=== PATIENT | female | born 1955 | race Caucasian/White ===

== ENCOUNTER 2016-12-19 16:29 | Observation (INO) | payer MEDICARE, MEDICAID ==
[~2016-12-19 16:29] MED LIST: ACID CONTROL150 M2 PO; ADULT LOW DOSE81 M1 PO; ALBUTEROL SULF8.5 GM IH; ALBUTEROL0.83 MG/ML INH; ALENDRONATE SOD70 M2 PO; ALPRAZOLAM0.5 M2 PO; ALPRAZOLAM0.5 M3 PO; AMLODIPINE BESY10 MG PO; AMLODIPINE BESYL5 MG PO; ASPIRIN EC81 MG PO; ASPIRIN325 MG PO; BRILINTA90 M1 PO; BUTALB-ACETAMI1 EAC4 PO; CATAPRES0.1 MG PO; CATAPRES0.2 M1 PO; CEFDINIR300 M1 PO; CIPRO500 M2 PO; CLOPIDOGREL75 M1 PO; COZAAR25 M1 PO; CRESTOR20 MG PO; CRESTOR20 MG/TAB PO; CYMBALTA30 MG PO; CYMBALTA60 M1 PO; ERYTHROMYCIN3.5 GM OP; EYE OP; FIORINAL 50-321 EACH PO; FLUTICASONE P15.8 ML INH; FUROSEMIDE40 M1 PO; FUROSEMIDE40 MG PO; GENTAK5 M1 OP; HYDROCHLOROTHIA25 M1 PO; HYDROCODON-ACE1 EA16 PO; HYZAAR 100-12.1 EACH PO; IBUPROFEN800 MG PO; IMDUR PO; IPRAT-ALBUT 0.5-3 ML NEB; ISOSORBIDE MON120 M1 PO; ISOSORBIDE MONO30 M4 PO; ISOSORBIDE MONO60 M3 PO; K-DUR10 MEQ PO; LAMOTRIGINE100 M2 PO; LAMOTRIGINE100 MG PO; LAMOTRIGINE25 M3 PO; LEVAQUIN750 M1 PO; LOPRESSOR25 MG/TA7 PO; LOPRESSOR50 M1 PO; LORCET 5-325 M1 EAC1 PO; LOSARTAN POTASS25 M1 PO; LOSARTAN-HCTZ1 EAC6 PO; METOPROLOL TART50 M2 PO; MIRTAZAPINE7.5 M1 PO; MUCINEX600 M1 PO; NITROGLYCERIN0.4 M2 SL; NITROSTAT0.4 MG/TAB SL; NORCO 5-325 TA1 EACH PO; NORVASC10 M2 PO; NYSTATIN SSP; PRAMIPEXOLE DI0.5 M1 PO; PREDNISONE10 M1 PO; PREDNISONE10 M2 PO; PREDNISONE5 M1 PO; PROAIR HFA8.5 GM INH; RANITIDINE HCL150 MG PO; REQUIP0.5 M1 PO; RIVASTIGMINE1.5 M1 PO; RIVASTIGMINE1.5 MG PO; SPIRIVA18 MC1 IH; SPIRIVA18 MC1 INH; SPIRIVA18 MCG IH; SPIRIVA18 MCG PO; SYMBICORT 80-41 PUFF INH; SYMBICORT 80/10.2 GM INH; VITAMIN D1000 UNI2 PO; VITAMIN D1000 UNIT PO; VITAMIN D31000 UNI4 PO; ZESTRIL40 M1 PO; ZOFRAN ODT4 MG PO
[2016-12-19 19:08] LABS: ANION GAP 11 mmol/L (0-20); BLOOD UREA NITROGEN 17 mg/dl (6-24); CALCIUM 8.7 mg/dl (8.5-10.5); CARBON DIOXIDE-VENOUS 29 mmol/L (22-32); CHLORIDE 104 mmol/l (96-110); GLUCOSE 109 mg/dL (70-110); POTASSIUM 3.7 mmol/L (3.7-5.1); SODIUM 140 mmol/L (135-145); eGFR VALUE FOR BLACK >90 mL/Min
[2016-12-19 19:26] LABS: BASO % 0.2 % (0-2); EOS % 0.7 % (0-7); EOSINOPHIL ABSOLUTE COUNT 0.1 tho/cmm (0.0-0.7); HCT-HEMATOCRIT 44.1 % (34.0-49.0); HGB-HEMOGLOBIN 14.7 gm/dl (12.0-15.5); IMMATURE GRANULOCYTES ABSOLUTE 0.02 tho/cmm (0-0.03); IMMATURE GRANULOCYTES PERCENT 0.2 % (0-0.3); LYMPH % 17.5 % (20-45); LYMPH ABSOLUTE COUNT 2.3 tho/cmm (0.8-4.5); MCH (MEAN CORPUSCULAR HGB) 28.1 pg (28.0-32.0); MCHC MEAN CORPUSCULAR HGB CONC 33.3 % (32.0-36.0); MCV (MEAN CELL VOLUME) 84.2 fl (82.0-96.0); MEAN PLATELET VOLUME 10.3 cmc (9.4-12.4); MONO % 9.1 % (0-12); MONOCYTE ABSOLUTE COUNT 1.2 tho/cmm (0.0-1.2); NEUTROPHIL ABSOLUTE COUNT 9.3 tho/cmm (1.6-8.0); NEUTROPHIL-AUTOMATED 9.3 tho/cmm (1.6-8.0); NEUTROPHILS % 72.3 % (40-80); PLATELET COUNT 208 tho/cmm (150-450); RED BLOOD COUNT 5.24 mil/cmm (4.00-5.20); RED CELL DISTRIBUTION WIDTH 14.6 % (12.4-16.4); WHITE BLOOD COUNT 12.9 tho/cmm (4.0-10.0)
[2016-12-19 22:43] LABS: CHOLESTEROL 133 mg/dl (120-200); HDL CHOLESTEROL 70 mg/dl (40-60); LDL CHOLESTEROL 45 mg/dl (0-99); TRIGLYCERIDES 94 mg/dl (<149); VLDL 19 mg/dl (0-30)
[2016-12-20 06:29] LABS: ANION GAP 10 mmol/L (0-20); BLOOD UREA NITROGEN 12 mg/dl (6-24); CALCIUM 8.4 mg/dl (8.5-10.5); CARBON DIOXIDE-VENOUS 29 mmol/L (22-32); CHLORIDE 105 mmol/l (96-110); CREATININE 0.49 mg/dl (0.50-1.10); GLUCOSE 110 mg/dL (70-110); POTASSIUM 3.4 mmol/L (3.7-5.1); SODIUM 141 mmol/L (135-145); eGFR VALUE FOR BLACK >90 mL/Min
[2016-12-21 06:11] LABS: BLOOD UREA NITROGEN 17 mg/dl (6-24); eGFR VALUE FOR BLACK 89 mL/Min
[2016-12-21 06:14] LABS: CREATININE 0.82 mg/dl (0.50-1.10)
[2016-12-21] MEDS ORDERED: RANEXA1000 M1 PO (10:40)
[2016-12-21] MEDS ORDERED: ASPIRIN81 M1 PO (10:43)
[2016-12-21] MEDS ORDERED: PREVACID15 M2 PO (10:45)
[2017-04-14] MEDS ORDERED: PRAMIPEXOLE0.125 M1 PO (11:35)
[2017-04-14] MEDS ORDERED: ACID REDUCER150 M1 PO (11:36)
[2017-04-16] MEDS ORDERED: MEDROL DOSE PACK (09:58)
[2017-04-16] MEDS ORDERED: ZITHROMAX250 M1 PO (10:00)
== END 2016-12-21 13:29 ==
LOC: EDMED 16:29 → EMR2 21:39 → CAR1 23:48
PROVIDERS: Physician Assistant; Physician Assistant Medical; ADMIT Internal Medicine Clinical Cardiac Electrophysiology
PROC: 4A023N7 Measurement of Cardiac Sampling and Pressure, Left Heart, Percutaneous Approach (ICD-10-PCS; principal; 2016-12-19)
PROC: B2131ZZ Fluoroscopy of Multiple Coronary Artery Bypass Grafts using Low Osmolar Contrast (ICD-10-PCS; 2016-12-19)
PROC: B2151ZZ Fluoroscopy of Left Heart using Low Osmolar Contrast (ICD-10-PCS; 2016-12-19)
DX: I25.110 Atherosclerotic heart disease of native coronary artery with unstable angina pectoris (principal); J44.9 Chronic obstructive pulmonary disease, unspecified; G47.33 Obstructive sleep apnea (adult) (pediatric); F17.210 Nicotine dependence, cigarettes, uncomplicated; I10 Essential (primary) hypertension; D72.829 Elevated white blood cell count, unspecified; E78.5 Hyperlipidemia, unspecified; I34.0 Nonrheumatic mitral (valve) insufficiency; I07.1 Rheumatic tricuspid insufficiency; I27.2 Other secondary pulmonary hypertension; Z79.02 Long term (current) use of antithrombotics/antiplatelets; Z79.82 Long term (current) use of aspirin; Z79.83 Long term (current) use of bisphosphonates; Z79.899 Other long term (current) drug therapy; Z88.2 Allergy status to sulfonamides; Z88.8 Allergy status to other drugs, medicaments and biological substances; Z91.048 Other nonmedicinal substance allergy status; Z86.718 Personal history of other venous thrombosis and embolism; Z82.49 Family history of ischemic heart disease and other diseases of the circulatory system; Z95.1 Presence of aortocoronary bypass graft; Z95.5 Presence of coronary angioplasty implant and graft; Z90.49 Acquired absence of other specified parts of digestive tract; Z90.11 Acquired absence of right breast and nipple; Z98.1 Arthrodesis status; Z96.652 Presence of left artificial knee joint; Z98.890 Other specified postprocedural states; Z99.81 Dependence on supplemental oxygen
CPT/HCPCS: A9500; G0378; J1644; J1650; J2250; J2270; J2405; J2785; J3010; J7030; J7040; Q9967